=== PATIENT | male | born 1970 | race Caucasian/White ===

== ENCOUNTER 2018-01-06 06:28 | Day surgery (SDC) | payer MEDICARE, MEDICAID, SELFPAY ==
[2018-01-06] VITALS (15 sets, daily range): BP systolic 90–120; BP diastolic 51–81; PULSE 68–87; RESP 10–16; TEMP 36–36.8; O2SAT 92–97; BMI 56.9
[2018-01-06] MEDS: LACTATED RINGERS 1,000 ML 42 ML IV (07:30)
[2018-01-06] MEDS: CEFAZOLIN 2 GM/100 ML FROZ.PIGGY IV (07:45)
[2018-01-06] MEDS: BUPIVACAINE 0.5% W/ EPI (PF) 30 ML VIAL INJ (09:38)
--- NOTE | 2018-01-06 10:08 | P.OP_ITS ---
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 Same procedure as scheduled: Yes Indications: Scapholunate ligament disruption with DISI deformity. No sign of any significant arthritic changes. Surgeon: Romario Co[employer] Technician: Yasmany Castillo Anesthesia Type: General Operative Notes Findings: Complete rupture of the scapholunate ligament with significant diastasis. Patient had a correctable DISI deformity Closure Type: primary Specimen(s): none sent Implants & Drains: Two anchors and 1 K-wire Applied: cast(s), graft(s) and implant(s) Estimated Blood Loss (mL): 5 Blood products transfused: none Tourniquet time (min): 75 Procedure in detail: On date of service, patient was met in the holding area. Operative site was signed and witnessed by the OR staff. The surgery once again discussed with patient and any remaining questions they had were answered fully. Patient was taken back to the operating theater and placed on the operating table in the supine position. Great care taken to ensure that all bony prominences were properly padded. A well-padded tourniquet was placed up along the upper extremity. A timeout was performed to verify patient's name, procedure, and operative site. The upper extremity was then prepped and draped in the normal sterile fashion. An Esmarch was used to exsanguinate the limb and the tourniquet was turned up to 250 mm mercury. A midline incision was made starting at the third metacarpal going just proximal to Cherelle's tubercle. A 15 blade was used to incise the skin and fascial tissue. Thick skin flaps with only adipose tissue was made. This gave us good visualization of the extensor retinaculum. The third extensor compartment was opened and the EPL was then retracted radially. Next, the second and fourth extensor compartments were opened. The fourth compartment was taken ulnarly while the second and third were taken radially. This gave us good visualization of the wrist capsule. A ligament splitting approach as described by Kaylan was performed. This gave us a good visualization of the proximal carpal as well as part of the distal carpal. There was a complete rupture of the scapholunate interosseous ligament. K wires were placed in the scaphoid and the lunate. These were used to correct any DISI deformity and close down any diastases. Once we had the scaphoid and the lunate reduced in the appropriate position, 1 K wires were placed across the scaphoid and the lunate. This held the scaphoid and lunate and anatomically fixed position. Next, a strip of ECRB was retrived. We dissected down until we could see the distal aspect of the tendon. 2mm of the tendon was used. 3 bony tunnels were drilled. 2 in the scaphoid and one in the lunate. The scaphoid bony tunnels were placed with 1 in the distal aspect of the scaphoid to help correct any flexion deformity and the 2nd tunnel was next to where the scapholunate ligament inserted. Attendant as well as a labral tape was placed into an anchor and placed into the proximal scaphoid drill hole. Patient had relatively soft bone and there was concern the anchor would pull out. So at this point we decided to place the anchor initially in the distal drill hole of the scaphoid which seemed to have a far better purchase. So the anchor as well as the tendon graft and the labral tape was tenodesed into the distal scaphoid. The tendon graft and labral tape was brought across the scapholunate interval and then tenodesed into the lunate. This allowed us to compress down the scapholunate interval. Our previous K-wires were holding the scaphoid and lunate in a correct position correcting the DISI deformity. Both suture tails where Shirley crossed and sutured back down providing additional fixation across the scapholunate interval. Xray where taken. There was a complete correction of the DISI deformity as well as the diastasis. Next the wound was then copiously irrigated. The capsular approach was closed using a 2-0 Ethibond. The extensor retinaculum was then closed using a 3-0 Vicryl stitch. Then the skin was closed with nylon. The wound was clean, dry, and dressed. Patient was placed into a splint and taken to the PACU in stable condition. Complications: none Condition: stable Disposition: PACU Plan for aftercare: Patient will be immobilized for a total of 6-8 weeks. No range of motion of the radiocarpal joint for the next 6 weeks. After 6-8 weeks , K-wire will be removed and patient will be placed into a wrist brace and can begin some gentle [id number] exercises.
--- NOTE | 2018-01-06 10:22 | SUR.PHASEI ---
stable post op attempted to void with assit using urinal.
[2018-01-06] MEDS: fentaNYL 100 MCG/2 ML INJ 25 MCG IV (10:31)
[2018-01-06] MEDS: HYDROCODONE/ACET 5/325 TABLET 1 TAB PO (11:23)
--- NOTE | 2018-01-06 11:36 | SUR.PHASEII ---
report called to [facility] at [facility], spoke with librado who takes care of damian. transporter on his way, mom at bedside- fed damian applesauce then medicated him with one norco. vss, l wrist elevated and iced. reported off to [facility].
== END 2018-01-06 12:45 | disposition home or self-care (01) ==
PROVIDERS: Visit Provider Orthopaedic Surgery
PROC: (CPT 25320; principal; 2018-01-06 07:45)
DX: S63.8X2A Sprain of other part of left wrist and hand, initial encounter (principal); I10 Essential (primary) hypertension; Z99.3 Dependence on wheelchair; R47.01 Aphasia; Z87.820 Personal history of traumatic brain injury
CPT/HCPCS: 25320; J0690; J1100; J2250; J2405; J2704; J3010